=== PATIENT | female | born 1960 | race Caucasian/White ===

== ENCOUNTER 2019-06-18 11:19 | Emergency (ER) | payer BC ==
[2019-06-18 11:28] VITALS: BP 115/55
--- NOTE | 2019-06-18 12:20 | UC ---
Throat Pain/Nasal Suman HPI - HPI Summary HPI Summary: 59 year old female with PMH + for psoriatic arthritis presents with sinus pressure/ pain b/l since friday/ 6 days. Low grade fever, + post nasal drip. Dry cough, inconsistent. no SOB, no pain with swallowing, appetite intact. no NETTLES. + eye pressure b/l. + ears popping, no pain - History of Current Complaint Chief Complaint: UCRespiratory Stated Complaint: SINUS CONGESTION Time Seen by Provider: 06/18/19 12:08 Hx Obtained From: Patient ?: No Onset/Duration: Sudden Onset, Lasting Days - 5 Severity: Moderate Pain Intensity: 8 Pain Scale Used: 0-10 Numeric Cough: Other: - minimal Associated Signs & Symptoms: Positive: Sinus Discomfort, Nasal Discharge, Fever. Negative: Dysphagia, FB Sensation, Drooling, Wheezing, Hoarseness, Vomiting, Rash - Allergies/Home Medications Allergies/Adverse Reactions: Allergies Allergy/AdvReac Type Severity Reaction Status Date / Time fish derived Allergy Airway Verified 06/18/19 11:29 Obstruction iodine Allergy Hives Verified 06/18/19 11:29 Penicillins Allergy Hives Verified 06/18/19 11:29 shellfish derived Allergy Nausea And Verified 06/18/19 11:29 Vomiting enviromental Allergy Mild itchy eyes Uncoded 06/18/19 11:29 and nose Home Medications: Home Medications Phenyleph/Acetaminophn/Doxylam [Vicks Sinex Dayquil/Nyqui] 2 mis PO Q6HR [History Confirmed 06/18/19] PMH/Surg Hx/FS Hx/Imm Hx Previously Healthy: Yes - Psoriatic arthriti, h/o sinus infectionsin past - Surgical History Surgical History: Yes Surgery Procedure, Year, and Place: wisdom teeth, gum surgery - Family History Known Family History: Positive: Non-Contributory - Social History Alcohol Use: Occasionally Substance Use Type: None Smoking Status (MU): Never Smoked Tobacco Review of Systems All Other Systems Reviewed And Are Negative: Yes Constitutional: Positive: Fever, Fatigue. Negative: Chills ENT: Positive: Nasal Discharge, Sinus Congestion, Sinus Pain/Tenderness. Negative: Sore Throat, Ear Ache Respiratory: Positive: Cough. Negative: Shortness Of Breath Musculoskeletal: Positive: Negative Neurological: Positive: Negative Is Patient Immunocompromised?: No Physical Exam Triage Information Reviewed: Yes Appearance: No Pain Distress, Well-Nourished, Ill-Appearing - mild Vital Signs: Initial Vital Signs Temp 98.2 F 06/18/19 11:24 Pulse 84 06/18/19 11:24 Resp 18 06/18/19 11:24 BP 115/55 06/18/19 11:24 Pulse Ox 99 06/18/19 11:24 Vital Signs Reviewed: Yes Eyes: Positive: Conjunctiva Clear ENT: Positive: Hearing grossly normal, Pharyngeal erythema - minimal b/l, Nasal congestion, Nasal drainage, TMs normal, Sinus tenderness - b/l max, Uvula midline. Negative: TM bulging, TM dull, TM red, Tonsillar swelling, Tonsillar exudate Neck: Positive: Supple, Nontender, No Lymphadenopathy. Negative: Nuchal Rigidity, Enlarged Nodes @ Respiratory: Positive: Chest non-tender, Lungs clear, Normal breath sounds, No respiratory distress, No accessory muscle use. Negative: Respiratory distress, Crackles, Rhonchi, Stridor, Wheezing Cardiovascular: Positive: RRR, No Murmur Neurological Exam: Normal Psychological Exam: Normal Throat Pain/Nasal Course/Dx - Course Course Of Treatment: SInusitis: - Antibiotics as directed - Increase fluid intake - Over the counter medications for symptoms, such as decongestant, pain control - Return with no improvement within 2-3 days or worsening of symptoms. GO to ER with shortness of breath, fever > 102, neck stiffness - Differential Dx/Diagnosis Differential Diagnosis/HQI/PQRI: Influenza, Laryngitis, Sinusitis, Tonsillitis Provider Diagnosis: Sinusitis Discharge ED - Sign-Out/Discharge Documenting (check all that apply): Patient Departure All imaging exams completed and their final reports reviewed: No Studies - Discharge Plan Condition: Good Disposition: HOME Prescriptions: Azithromyxin RICHARD (NF) [Z-Richard (Zithromax) 250 mg tabs #6] 2 tab PO .TODAY, THEN 1 DAILY #6 tab Patient Education Materials: Sinusitis (ED) Referrals: Paul Martin MD [Primary Care Provider] - Additional Instructions: SInusitis: - Antibiotics as directed - Increase fluid intake - Over the counter medications for symptoms, such as decongestant, pain control - Return with no improvement within 2-3 days or worsening of symptoms. GO to ER with shortness of breath, fever > 102, neck stiffness - Billing Disposition and Condition Condition: GOOD Disposition: Home - Attestation Statements Provider Attestation: Per institutional requirements, I have reviewed the chart, however, I was not consulted specifically or made aware of this patient by the midlevel provider. I did not personally evaluate, interact with , or disposition this patient.
== END 2019-06-18 12:28 | disposition home or self-care (01) ==
LOC: UCEAST 11:19
DX: J32.9 Chronic sinusitis, unspecified (principal); R05 Cough; L40.50 Arthropathic psoriasis, unspecified; Z88.0 Allergy status to penicillin; Z91.013 Allergy to seafood; Z91.09 Other allergy status, other than to drugs and biological substances
CPT/HCPCS: 99212; G0463